=== PATIENT | male | born 1945 | race Caucasian/White ===

== ENCOUNTER 2017-02-04 10:20 | Day surgery (SDC) | payer OTHER, MEDICARE ==
[2017-01-30 09:44] VITALS: BMI 30.5
[2017-02-04] MEDS ORDERED: Iohexol 240 (50 ml) ONE (18:05)
[2017-02-04] MEDS: Lactated Ringer's 1,000 ML IV ONE ×2 (18:05→18:35)
[2017-02-04] MEDS ORDERED: cefTRIAXone IV 1 gm in Dextros 50 ML IVPB ONE (18:05)
[2017-02-04] MEDS ORDERED: Propofol 10 mg/ml Inj (20 ML) ONE (18:16)
[2017-02-04] MEDS ORDERED: Lidocaine Hydrochloride 5 ML INJ ONE (18:17)
[2017-02-04] MEDS ORDERED: HYDROmorphone 0.5 mg/0.5 ml ISec IVP PRN (18:39)
[2017-02-04] MEDS ORDERED: Oxycodone/Acetaminophen 5/325 mg Tab PO PRN (18:52)
[2017-02-04 18:57] VITALS: RESP 12; TEMP 97.6
[2017-02-04] MEDS ORDERED: Gentamicin 80 mg in 0.9% NS 80 MG/100 ML BAG IVPB SCH (19:00)
--- NOTE | 2017-02-04 19:29 | HP ---
REASON FOR ADMISSION: Treatment of urinary retention, elevated PSA, voiding dysfunction. The patient is an extremely pleasant gentleman. I have known him for quite some time. He has a sign ificant voiding dysfunction and decreased of stream in the office and hematuria, elevated PSA. In the office, we did a cystoscope and we found him to have urethral stricture disease and he is her e now for cysto IOU. He lives out in [place]. He has been my patient for quite some time and he has been in stable condition. PAST MEDICAL AND SURGICAL HISTORY: Otherwise, as mentioned above. Otherwise, unremarkable. REVIEW OF SYSTEMS: Listed above. SOCIAL HISTORY: He is here today with his daughter. He comes in usually with his long-time partner. MEDICATIONS: See the chart. ALLERGIES: None. PHYSICAL EXAMINATION: GENERAL: Well-nourished male, in no apparent distress. VITAL SIGNS: Within normal limits. LUNGS: Clear. ABDOMEN: Overall soft, nontender. GENITOURINARY: Normal male phallus without discharge. Difficult to evaluate for urinary distention. Prostate is a 30-gram prostate, soft and smooth. LABORATORIES: See chart. DIAGNOSES: Elevated PSA, voiding dysfunction, hematuria, urinary retention, urethral stricture disea se, irritative and obstructive complaints. A very pleasant gentleman who is now 71 years old. I have known him for quite some time. I have been following him along. He has been in stable condition. But now he has worsening voiding and irritative complaints. PLAN: For today is cystoscopy and internal optical urethrotomy. Risks, benefits discussed with ivory ent. I explained to the patient that we may find other abnormalities of the prostate and he may need further treatment, but first, we will see how he responds to the ICU. So the plan is as follows. Antibiotic prophylaxis, cystoscopy IOU, and insertion of Collins. ADDENDUM: See the operative report. What we found basically is 2 separate strictures. We opened miri th of those. We will see how he responds with the Collins catheter. The patient does have prostatic o cclusive tissue. It is not exceedingly occlusive, but it is certainly prominent. We will see if he responds to the strictures and then we will discuss. He has also had multiple biop sies before, but we may have to consider at this point we have done a previous TURP at least once. I definitely can recall pathology that is above 60 grams of tissue that have all been benign. But he may have more tissue there. He does have a tremendously gigantic prostate. We will see what we find. After today's procedure, we will see if he responds well to the stricture opening, and if not, we are going to offer another PVP GreenLight laser TURP with an electrical TURP. Further plans to follow. Mick Crow MD cc: [id number] TT: 02/04/2017 19:29:03 mn
--- NOTE | 2017-02-04 19:46 | OP ---
PROCEDURE DATE: 02/04/2017 PREOPERATIVE DIAGNOSES: Urethral stricture disease, elevated PSA, voiding dysfunction, urinary reten tion, 2 strictures. POSTOPERATIVE DIAGNOSES: Urethral stricture disease, elevated PSA, voiding dysfunction, urinary rete ntion, 2 strictures. PROCEDURE: Cystoscopy, internal optical urethrotomy x 2 and insertion of Collins catheter. COMPLICATIONS: None. DRAIN: Collins catheter, Councill tip [id number]. INDICATIONS: See history and physical. He is very pleasant gentleman here for the above procedure. FINDINGS: Normal meatus. Within the bulbous and urethra, there are 2 separate strictures. Pictures were taken and saved. But they were both cut with the cold knife anteriorly. The remainder from the prostate is relatively open. It is not wide, wide open, but it is not c losed. He has had a previous TURP. Within the urinary bladder, there is a heavily trabeculated bladder. No bladder tumors are identified. No abnormalities. The patient tolerated procedure without complication and there is a Collins catheter left in place. DESCRIPTION OF PROCEDURE: After obtaining informed consent, the patient placed on the table. The pa tient was given antibiotics. We called the timeouts. We confirmed the patient, the positioning, etc . cystoscope. We started with the internal optical urethrotomy; I already did a cysto in the office and knew of the stricture. Today, what we did was we lined up with the cold knife setup. Internal optical urethrotomy . The entire procedure is done with the camera. I saw passed the olive tip past the first stricture and made a cold knife cut. It actually did not go into the bladder, because of a second stricture. Once I identified that under direct vision, I was able to negotiate, put the olive tip catheter through that and then make anothe r incision in the anterior anteriorly. From thereon in, we ran the way the rest of the bladder without difficulty from the prostate in. The prostate is relatively opened, and relatively meaning there is still prostatic tissue, bilateral hyp ertrophy, trilobar hypertrophy from each side. But it is relatively open. From the bladder neck in. What is of note is the significance of the bladder there is a heavily trabeculated bladder. Overall, the patient tolerated this without complication. Mick Crow MD cc: [id number] TT: 02/04/2017 19:46:09 mn
[2017-02-04 22:13] VITALS: BP 163/85; PULSE 57; O2SAT 100
== END 2017-02-04 20:10 | disposition home or self-care (01) ==
LOC: C.SDS 10:20
PROVIDERS: ATTEND Urology
DX: N35.9 Urethral stricture, unspecified (principal); R33.9 Retention of urine, unspecified; R97.20 Elevated prostate specific antigen [PSA]; N32.89 Other specified disorders of bladder
CPT/HCPCS: 52276; C1769; J0696; J1580; J7120